=== PATIENT | female | born 1990 | race American Indian/Alaskan Native ===

== ENCOUNTER 2017-01-07 15:58 | Emergency (ER) | payer OTHER, BC ==
[2017-01-07 16:01] VITALS: BMI 23.2
[2017-01-07 16:05] VITALS: BP 113/72; PULSE 130; RESP 21; TEMP 98.5; O2SAT 99
[2017-01-07] MEDS ORDERED: TDAP Vaccine 0.5 mL Syr IM ONE (16:16)
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
== END 2017-01-07 17:36 | disposition home or self-care (01) ==
LOC: ED 15:58
DX: S50.812A Abrasion of left forearm, initial encounter (principal); S50.12XA Contusion of left forearm, initial encounter; V49.9XXA Car occupant (driver) (passenger) injured in unspecified traffic accident, initial encounter; Z23 Encounter for immunization